=== PATIENT | male | born 1995 | race Caucasian/White ===

== ENCOUNTER 2021-06-15 09:09 | Outpatient (REF) | payer OTHER, SELFPAY | END 2021-06-15 09:10 | disposition home or self-care (01) | LOC: HO.LAB 09:09 | PROVIDERS: Visit Provider Internal Medicine | DX: Z20.822 Contact with and (suspected) exposure to COVID-19 (principal) | CPT/HCPCS: C9803; U0003; U0005 ==

== ENCOUNTER 2021-12-12 20:20 | Emergency (ER) | payer OTHER, SELFPAY ==
--- NOTE | ~2021-12-12 | XR_ITS ---
EXAMINATION: XR LUMBOSACRAL SPINE CLINICAL INFORMATION: Low back COMPARISON: 06/14/2006 lumbar spine, report only TECHNIQUE: Three views of the lumbosacral spine. FINDINGS: There is a mild scoliosis convex to the right. Vertebral heights and disc spaces are well maintained. No bony destructive lesions are seen. The visualized bowel gas pattern appears unremarkable with moderate stool burden and no evidence of obstruction. XR/XR lumbar spine 2-3V IMPRESSION: Unremarkable examination.
[2021-12-12 20:25] VITALS: BP 128/72; PULSE 85; O2SAT 99
[2021-12-12 21:47] VITALS: BP 125/80; PULSE 96; RESP 16; TEMP 36.8; O2SAT 98; BMI 18.4
--- NOTE | 2021-12-12 23:24 | ED_ITS ---
HPI - Back Pain/Injury General Chief Complaint: Back Pain/Injury Stated Complaint: lower back pain Time Seen by Provider: 12/12/21 23:24 Source: patient Mode of arrival: ambulatory Limitations: no limitations History of Present Illness HPI Narrative: This is a 26-year-old male presenting to the emergency department with acute onset lower back pain. Patient tells me that he was moving a desk, after he moved the desk and took a step back he started experiencing severe back pain. He tells me that the back pain is located to the lower back it does not radiate. He tells me that he has gotten back pain in the same location before.Denies numbness or tingling. No history of IV drug use. He denies changes in bowel habits, incontinence, saddle paresthesias, numbness or tingling, fevers, chills, chest pain, shortness of breath. He reports no trauma to the area. MD elicited complaint: back pain Pertinent past history: prior back pain Onset (ago): day(s) (1) Timing: constant Severity: severe Pain scale (0-10): 10 Similar Symptoms Previously: No Quality: sharp Location: lumbar spine Radiation: none Exacerbating factors: none Relieving factors: none Context: other (after lifting, while taking a step back ) Associated symptoms: denies other symptoms Work related injury: No Related Data Previous Rx's Medication Instructions Recorded lidocaine 5 % topical patch 1 patch TOPICAL DAILY PRN #15 ea 12/13/21 oxycodone 5 mg capsule 5 mg PO BID PRN #8 cap 12/13/21 Allergies Allergy/AdvReac Type Severity Reaction Status Date / Time No Known Allergies Allergy Unverified 05/28/20 17:25 [No Known Allergies*] Review of Systems Review of Systems: Constitutional : No Weight loss, No Fever, No Chills, No Fatigue, No Malaise ENT/Mouth : No sore throat, No Rhinorrhea Eyes: No Eye Pain, No Swelling, No Redness Cardiovascular : No Chest Pain, No SOB, No Dyspnea on Exertion, No Orthopnea, No Edema, No Palpitations Respiratory : No Cough, No Sputum, No Wheezing Gastrointestinal : No Nausea, No Vomiting, No Diarrhea, No Constipation, No abdominal Pain, No Hematochezia, No Melena Genitourinary : No Dysuria, No Urinary Frequency, No Hematuria, Musculoskeletal : + joint pain, No Myalgias, No Joint Swelling Skin : No Skin Lesions, No rash Neuro : No Weakness, No Numbness, No Dizziness, No Headache Psych : No Anxiety/Panic, No Depression All other systems reviewed and are negative [facility] Past Medical History Attestation statement: The following information was validated with the patient. Source: old records reviewed and nursing notes reviewed Medical History (Updated 12/13/21 @ 00:53 by TY Ibarra) No known health problems Social History Social History Advance Directives: No Physical Exam Vital Signs: Vital Signs: Last Vital Signs Temp 98.3 F 12/12/21 21:47 Pulse 96 12/12/21 21:47 Resp 16 12/12/21 21:47 BP 125/80 12/12/21 21:47 Pulse Ox 98 12/12/21 21:47 BMI result Body Mass Index 18.4 Vital signs stable Appearance: Alert.? Oriented X3.? No acute distress.? Head: Normocephalic, atraumatic, no step-offs or deformities Eyes: Pupils equal, round and reactive to light.? ENT: Pharynx normal.? Neck: Normal inspection.? Neck supple.? CVS: Normal heart rate and rhythm.? Pulses normal.? Respiratory: No respiratory distress.? Breath sounds normal.? Abdomen: Soft and nontender.? Skin: Skin warm and dry.? Normal skin color.? Normal skin turgor.? Extremities: No lower extremity edema.? No calf ttp. 5/5 strength to bilateral upper and lower extremities . Bilateral patellar reflexes 2+ equal bilateral Back: No midline tenderness, no C-spine tenderness, full range of motion, no CVA tenderness bilaterally. no pain on palpation of paraspinous muscles. Positive leg raise bilaterally. Neuro: Oriented X 3.? No motor deficit.? No sensory deficit. CN 2-12 intact no saddle paresthesia. Ambulating with steady gait. Course Reevaluation(s) Reevaluation #1: CT of the lumbar spine unremarkable. At this time likely lumbar strain. Advised patient follow-up with PCP as he may require further imaging such as an MRI. Advised him to return with new or worsening symptoms. Outlined worrisome signs and symptoms and discharge in vies him to return. I will prescribe patient a narcotic for severe pain advised him that he can use ibuprofen and Tylenol instead. Comfortable with discharge home with PCP follow-up. Time: 00:49 MDM - Back Pain/Injury MDM Narrative Medical decision making narrative: 1130 26 yo m presents w/ acute lower back pain s/p lifting a desk. Pain didnt start when lifting pain started when taking a step back, PE significant for positive straight leg raise b/l and pain to lower back with all rom. No midline tenderness. Based off patient history and physical examination unlikely that this cauda equina or epidural abscess. Likely herniated disc, lumbar strain or sprain. Plan- lumbar spine xray Medical Records Attestation: I reviewed the patient's medical records. Lab Data Attestation: I reviewed the patient's lab results. Critical Care Time Critical Care Time Critical Care Time: No Discharge Plan Discharge Clinical Impression: Strain of lumbar region Patient Disposition: Home, Self-Care Instructions: Muscle Strain (ED), Low Back Strain (ED), Acute Low Back Pain (ED), Back Pain (ED), R.I.C.E. Treatment (ED), Lower Back Exercises (ED) Additional Instructions: Take your medications as prescribed. If you were prescribed antibiotics today, it is important that you take your medication to their entirety, do not skip any doses, do not finish them early. Follow-up with your primary care provider this week. Return to the emergency department with new or worsening symptoms. Such as fevers, chills, chest pain, shortness of breath, nausea, vomiting, dizziness, headache, vision changes, lethargy , inability to control bladder or bowel, weakness, unable to feel your legs. In case of emergency call 911 XR/XR lumbar spine 2-3V IMPRESSION: Unremarkable examination. a controlled substance has been sent to your pharmacy. Only take this for severe pain. If able to please take ibuprofen every 6 hours, Tylenol every 4 as needed for pain instead of taking a controlled substance. Prescriptions: New oxycodone 5 mg capsule 5 mg PO BID PRN (Reason: pain) Qty: 8 0RF Rx Instructions: Patient can partially filled this prescription upon request lidocaine 5 % adhesive patch,medicated 1 patch topical DAILY PRN (Reason: pain) Qty: 15 0RF Rx Instructions: leave on most painful area for up to 12 hrs Referrals: Physician,None [Primary Care Provider] - 2 days Stand Alone Forms: Work/School Release
[2021-12-12] MEDS: Lidocaine 4 % Patch ADH..PATCH 1 PATCH TRANSDERMA (23:33)
[2021-12-12] MEDS: oxyCODONE HCl Immed Release 5 MG TABLET PO (23:34)
== END 2021-12-13 01:25 | disposition home or self-care (01) ==
PROVIDERS: Emergency Provider Emergency Medicine Emergency Medical Services
DX: M54.50 Low back pain, unspecified (principal)
CPT/HCPCS: 72100; 99284